=== PATIENT | female | born 1945 | race Caucasian/White ===

== ENCOUNTER 2017-06-13 14:56 | Observation (INO) | payer OTHER ==
[~2017-06-13] VITALS: Ht 167.6 cm; Wt 61.2 kg
[~2017-06-13 14:56] MED LIST: DIVA500EC PO; FAMO20 PO; HYDACE5 PO; NAPR500 PO; RISP2
[2017-06-13 15:37] LABS: BASOPHILS ABSOLUTE AUTO 0.05 K/mm3 (0.00-0.23); BASOPHILS PERCENT AUTO 1 % (0-2); EOSINOPHILS ABSOLUTE AUTO 0.04 K/mm3 (0.00-0.68); EOSINOPHILS PERCENT AUTO 1 % (0-6); Hematocrit 46.2 % (33.0-51.0); Hemoglobin 15.2 g/dL (11.5-16.0); IMMATURE GRAN ABSOLUTE AUTO 0.01 K/mm3 (0.00-0.10); IMMATURE GRAN PERCENT AUTO 0 % (0-1); LYMPHOCYTES ABSOLUTE AUTO 2.44 K/mm3 (0.84-5.20); LYMPHOCYTES PERCENT AUTO 34 % (21-46); MONOCYTES PERCENT AUTO 7 % (4-13); Mean Corpuscular HGB 32.1 pg (26.0-34.0); Mean Corpuscular HGB Conc 32.9 g/dL (31.5-36.5); Mean Corpuscular Volume 98 fL (80-100); Mean Platelet Volume 10.7 fL (9.1-12.4); NEUTROPHILS ABSOLUTE AUTO 4.17 K/mm3 (1.96-9.15); NEUTROPHILS PERCENT AUTO 58 % (41-73); Platelet Count 260 K/mm3 (150-400); RDW Coefficient Variation 12.2 % (11.7-14.2); RDW Standard Deviation 43.9 fL (35.1-46.3); Red Blood Cell Count 4.74 M/mm3 (3.80-5.20); White Blood Cell Count 7.21 K/mm3 (4.00-11.30)
[2017-06-13] MEDS ORDERED: DIVA500ER PO (15:56)
[2017-06-13] MEDS ORDERED: RISP2 PO ×2 (15:57)
[2017-06-13 15:59] LABS: Alanine Aminotransfer (ALT/SGP 54 U/L (12-78); Albumin, Blood 3.7 g/dL (3.4-5.0); Albumin/Globulin Ratio 1.1 (0.8-1.8); Alk Phos 107 U/L (50-136); Anion Gap 9 mmol/L (6-16); Aspartate Aminotrans (AST/SGOT 39 U/L (12-37); Bilirubin, Total 0.6 mg/dL (0.1-1.0); Blood Urea Nitrogen 9 mg/dL (8-24); Bun/Creatinine Ratio 18.4 (12.0-20.0); CO2, Blood 23 mmol/L (21-32); Chloride, Blood 107 mmol/L (98-108); Creatinine, Blood 0.49 mg/dL (0.40-1.00); Ethanol (Alcohol), Blood, Med <3 mg/dL; Globulin, Blood 3.5 g/dL (2.2-4.0); Glomerular Filtration Rate >60 (60-); Glucose, Blood 110 mg/dL (70-99); Potassium, Blood 3.9 mmol/L (3.5-5.5); Sodium, Blood 139 mmol/L (136-145); Thyroxine (T4) 10.3 ug/dL (4.8-13.9); Total Protein, Blood 7.2 g/dL (6.4-8.2)
[2017-06-13 16:07] LABS: Acetaminophen, Random < 2.0 ug/mL (10.0-30.0)
[2017-06-13 20:44] LABS: Valproic Acid 3.1 ug/mL (50.0-100.0)
[2017-06-14 01:02] LABS: Source, Urine Clean Catch
[2017-06-14 01:37] LABS: Bilirubin, Urine Neg (Neg); Blood, Urine 1+ (Neg); Glucose Qualitative, Urine Neg (Neg); Ketones, Urine 1+ (Neg); Leukocyte Esterase, Urine Neg (Neg); Nitrite, Urine Neg (Neg); Protein, Urine 1+ (Neg); Urobilinogen, Urine 3+ (Normal)
[2017-06-14 01:38] LABS: Color, Urine Yellow (P-Yellow); U Amphetamine Screen Not Detected; U Barbituate Screen Not Detected; U Benzodiazapine Screen Not Detected; U Buprenorphine Screen Not Detected; U Cannabinoids Screen Not Detected; U Cocaine Screen Not Detected; U Methadone Screen Not Detected; U Methamphetamine Screen Not Detected; U Opiates Screen Not Detected; U Oxycodone Screen Not Detected; U Phencyclidine Screen Not Detected; U Propoxyphene Screen Not Detected
[2017-06-14 01:39] LABS: Appearance, Urine Hazy (Clear)
[2017-06-14 02:51] LABS: Bacteria Few /hpf; Mucus Light (0-Heavy); Squamous Epithelial Cells Rare /hpf (Few); White Blood Cells, Urine 0-2 /hpf (0-5)
== END 2017-06-14 19:16 | disposition home or self-care (01) ==
LOC: ER 14:56 → EOR 14:57
PROVIDERS: Emergency Medicine
DX: F03.90 Unspecified dementia, unspecified severity, without behavioral disturbance, psychotic disturbance, mood disturbance, and anxiety (principal); F25.0 Schizoaffective disorder, bipolar type; F17.200 Nicotine dependence, unspecified, uncomplicated; Z88.2 Allergy status to sulfonamides; Z88.8 Allergy status to other drugs, medicaments and biological substances; Z79.899 Other long term (current) drug therapy
CPT/HCPCS: 36415; 80053; 80164; 81001; 81025; 83880; 84436; 84443; 85025; 93005; 93010; 99285; G0378; G0480

== ENCOUNTER → 2017-10-07 | Outpatient (CLI) | payer OTHER ==
[~2017-10-07] MED LIST changes: +DIVA500ER PO; +RISP2 PO
== END ==
LOC: PLD 08:23 → LAB SHORT 08:23
DX: D48.5 Neoplasm of uncertain behavior of skin (principal)
CPT/HCPCS: 88305

== ENCOUNTER → 2019-06-01 | Outpatient (CLI) | payer OTHER ==
[2019-06-01 19:20] LABS: Source, Urine Clean Catch
[2019-06-01 20:04] LABS: Appearance, Urine Clear (Clear); Bilirubin, Urine Neg (Neg); Blood, Urine 1+ (Neg); Color, Urine Yellow (P-Yellow); Glucose Qualitative, Urine Neg (Neg); Ketones, Urine 1+ (Neg); Leukocyte Esterase, Urine Neg (Neg); Nitrite, Urine Neg (Neg); Protein, Urine Neg (Neg); Urobilinogen, Urine NORM (Normal)
[2019-06-01 20:10] LABS: Bacteria Mod /hpf; Red Blood Cells, Urine 0-2 /hpf (0-2); Squamous Epithelial Cells Few /hpf (Few); White Blood Cells, Urine 0-2 /hpf (0-5)
== END | disposition home or self-care (01) ==
LOC: LAB 19:19 → LAB SHORT 19:19
PROVIDERS: Physician Assistant
DX: N39.0 Urinary tract infection, site not specified (principal)
CPT/HCPCS: 81001; 87086

== ENCOUNTER → 2019-10-21 | Outpatient (CLI) | payer OTHER | END | disposition home or self-care (01) | LOC: LAB SHORT 08:07 → LAB 08:07 | DX: L57.8 Other skin changes due to chronic exposure to nonionizing radiation (principal) | CPT/HCPCS: 88305 ==

== ENCOUNTER → 2019-11-03 | Outpatient (CLI) | payer OTHER ==
[2019-11-03 13:13] LABS: Valproic Acid 71.9 ug/mL (50.0-100.0)
== END | disposition home or self-care (01) ==
LOC: LAB SHORT 09:44 → LAB 09:44
PROVIDERS: Psychiatry & Neurology Psychiatry
DX: Z51.81 Encounter for therapeutic drug level monitoring (principal); Z79.899 Other long term (current) drug therapy
CPT/HCPCS: 80164

== ENCOUNTER → 2020-01-12 | Outpatient (CLI) | payer OTHER ==
[2020-01-12 19:49] LABS: BASOPHILS ABSOLUTE AUTO 0.04 K/mm3 (0.00-0.23); BASOPHILS PERCENT AUTO 1 % (0-2); EOSINOPHILS ABSOLUTE AUTO 0.08 K/mm3 (0.00-0.68); EOSINOPHILS PERCENT AUTO 1 % (0-6); Hematocrit 45.7 % (33.0-51.0); Hemoglobin 14.5 g/dL (11.5-16.0); IMMATURE GRAN ABSOLUTE AUTO 0.05 K/mm3 (0.00-0.10); IMMATURE GRAN PERCENT AUTO 1 % (0-1); LYMPHOCYTES ABSOLUTE AUTO 3.29 K/mm3 (0.84-5.20); LYMPHOCYTES PERCENT AUTO 48 % (21-46); MONOCYTES PERCENT AUTO 9 % (4-13); Mean Corpuscular HGB 32.8 pg (26.0-34.0); Mean Corpuscular HGB Conc 31.7 g/dL (31.5-36.5); Mean Corpuscular Volume 103 fL (80-100); Mean Platelet Volume 11.3 fL (9.1-12.4); NEUTROPHILS ABSOLUTE AUTO 2.83 K/mm3 (1.96-9.15); NEUTROPHILS PERCENT AUTO 41 % (41-73); Platelet Count 220 K/mm3 (150-400); RDW Coefficient Variation 12.2 % (11.7-14.2); RDW Standard Deviation 47.2 fL (35.1-46.3); Red Blood Cell Count 4.42 M/mm3 (3.80-5.20); White Blood Cell Count 6.89 K/mm3 (4.00-11.30)
[2020-01-12 20:00] LABS: Alanine Aminotransfer (ALT/SGP 39 U/L (12-78); Albumin/Globulin Ratio 0.8 (0.8-1.8); Alk Phos 110 U/L (50-136); Anion Gap 6 mmol/L (6-16); Aspartate Aminotrans (AST/SGOT 29 U/L (12-37); Bilirubin, Total 0.3 mg/dL (0.1-1.0); Blood Urea Nitrogen 8 mg/dL (8-24); Bun/Creatinine Ratio 11.1 (12.0-20.0); CO2, Blood 27 mmol/L (21-32); Calcium, Blood 8.8 mg/dL (8.5-10.1); Chloride, Blood 106 mmol/L (98-108); Creatinine, Blood 0.72 mg/dL (0.40-1.00); Glomerular Filtration Rate >60 (60-); Glucose, Blood 101 mg/dL (70-99); Potassium, Blood 4.3 mmol/L (3.5-5.5); Sodium, Blood 139 mmol/L (136-145)
== END ==
LOC: LAB SHORT 18:56 → PLD 18:56
PROVIDERS: Physician Assistant
DX: F31.9 Bipolar disorder, unspecified (principal)
CPT/HCPCS: 80053; 85025

== ENCOUNTER → 2020-03-15 | Outpatient (CLI) | payer OTHER | LOC: LAB SHORT 09:10 → LAB 09:10 | PROVIDERS: Psychiatry & Neurology Psychiatry | DX: Z51.81 Encounter for therapeutic drug level monitoring (principal); Z79.899 Other long term (current) drug therapy | CPT/HCPCS: 80164 ==

== ENCOUNTER 2020-05-18 09:04 | Inpatient (IN) | payer OTHER ==
[~2020-05-18] VITALS: Ht 170.2 cm; Wt 85.6 kg
[2020-05-18] MEDS ORDERED: TUMS500 MG PO (09:27)
[2020-05-18] MEDS ORDERED: LORA10ER PO (09:28)
[2020-05-18] MEDS ORDERED: CENTRUM SILVER1 EAC2 PO (09:28)
[2020-05-18] MEDS ORDERED: QUETIAPINE FUMA50 M2 PO (09:28)
[2020-05-18] MEDS ORDERED: ACET325 PO (09:29)
[2020-05-18] MEDS ORDERED: BISA10S (09:30)
[2020-05-18] MEDS ORDERED: ROBITUSSIN100 MG/5 M PO (09:31)
[2020-05-18] MEDS ORDERED: RISP3 PO (09:33)
[2020-05-18 10:38] LABS: Valproic Acid 74.4 ug/mL (50.0-100.0)
[2020-05-18 10:47] LABS: Alanine Aminotransfer (ALT/SGP 26 U/L (12-78); Albumin/Globulin Ratio 0.9 (0.8-1.8); Alk Phos 100 U/L (50-136); Anion Gap 8 mmol/L (6-16); Aspartate Aminotrans (AST/SGOT 62 U/L (12-37); Bilirubin, Total 0.9 mg/dL (0.1-1.0); Blood Urea Nitrogen 3 mg/dL (8-24); Bun/Creatinine Ratio 9.1 (12.0-20.0); CO2, Blood 25 mmol/L (21-32); Calcium, Blood 7.9 mg/dL (8.5-10.1); Chloride, Blood 82 mmol/L (98-108); Creatinine, Blood 0.33 mg/dL (0.40-1.00); Globulin, Blood 3.5 g/dL (2.2-4.0); Glomerular Filtration Rate >60 (60-); Glucose, Blood 121 mg/dL (70-99); Potassium, Blood 4.4 mmol/L (3.5-5.5); Sodium, Blood 115 mmol/L (136-145); Total Protein, Blood 6.5 g/dL (6.4-8.2)
[2020-05-18 11:20] LABS: BASOPHILS ABSOLUTE AUTO 0.01 K/mm3 (0.00-0.23); BASOPHILS PERCENT AUTO 0 % (0-2); EOSINOPHILS PERCENT AUTO 0 % (0-6); Hematocrit 39.4 % (33.0-51.0); Hemoglobin 13.8 g/dL (11.5-16.0); IMMATURE GRAN ABSOLUTE AUTO 0.09 K/mm3 (0.00-0.10); IMMATURE GRAN PERCENT AUTO 1 % (0-1); LYMPHOCYTES ABSOLUTE AUTO 1.15 K/mm3 (0.84-5.20); LYMPHOCYTES PERCENT AUTO 9 % (21-46); MONOCYTES ABSOLUTE AUTO 1.18 K/mm3 (0.16-1.47); MONOCYTES PERCENT AUTO 9 % (4-13); Mean Corpuscular HGB 32.9 pg (26.0-34.0); Mean Corpuscular Volume 94 fL (80-100); Mean Platelet Volume 10.2 fL (9.1-12.4); NEUTROPHILS ABSOLUTE AUTO 11.13 K/mm3 (1.96-9.15); NEUTROPHILS PERCENT AUTO 82 % (41-73); Platelet Count 210 K/mm3 (150-400); RDW Coefficient Variation 10.9 % (11.7-14.2); RDW Standard Deviation 37.3 fL (35.1-46.3); White Blood Cell Count 13.56 K/mm3 (4.00-11.30)
[2020-05-18 11:34] LABS: Source, Urine Catheter
[2020-05-18 11:40] LABS: Appearance, Urine Clear (Clear); Bilirubin, Urine Neg (Neg); Blood, Urine 2+ (Neg); Color, Urine Yellow (P-Yellow); Glucose Qualitative, Urine Neg (Neg); Ketones, Urine 2+ (Neg); Leukocyte Esterase, Urine Neg (Neg); Nitrite, Urine Neg (Neg); Protein, Urine Neg (Neg); Urobilinogen, Urine NORM (Normal)
[2020-05-18 11:54] LABS: Bacteria Few /hpf; Squamous Epithelial Cells Few /hpf (Few); White Blood Cells, Urine 0-2 /hpf (0-5)
[2020-05-18 15:34] LABS: Osmolality, Urine 354 mos/kg (15-1400)
[2020-05-18 16:00] LABS: Sodium, Urine, Random 85 mmol/L (20-110)
[2020-05-18 16:51] LABS: Anion Gap 5 mmol/L (6-16); Blood Urea Nitrogen 4 mg/dL (8-24); CO2, Blood 28 mmol/L (21-32); Calcium, Blood 8.2 mg/dL (8.5-10.1); Chloride, Blood 81 mmol/L (98-108); Glomerular Filtration Rate >60 (60-); Glucose, Blood 140 mg/dL (70-99); Potassium, Blood 4.5 mmol/L (3.5-5.5); Sodium, Blood 114 mmol/L (136-145)
[2020-05-18 19:02] LABS: Uric Acid, Blood 2.4 mg/dL (2.6-6.0)
[2020-05-18 19:04] LABS: Phosphorus, Blood 2.7 mg/dL (2.5-4.9); Thyroid Stimulating Hormone 0.99 uIU/mL (0.360-4.800)
--- NOTE | 2020-05-18 19:07 | NUR ---
Admission/Shift Summary: Patient arrive to unit/ICU-15 at 1615hr. Arrived via stretcher, accompanied by ED nurse. Patient sleeping, but roused to verbal stimuli, very drowsy and difficulty to keep awake. Patient given prn Dilaudid in ED before arrival to unit. Oriented to self and time, but confused to place. VSS, spO2 90-94% on 6L/NC. Peripheral IV's x2 patent and intact. 3% Saline started peripherally and call placed to Dr. Gilliam. Received order to place PICC line and to also start NS at 75ml/hr. PICC placed to [facility] without difficulty by Pineda Pagan RN from Medical floor, 3% Saline then switched to PICC line. Repeat sodium levels showed increased from 114 to 117. Received order from Dr. Gilliam to stop 3% Saline when sodium reaches 120, and maintain NS, nurse notify placed. Patient remains stable. Bedside report given to NOC shift RN.
--- NOTE | 2020-05-18 20:16 | NUR ---
Care Assumed 1900 PT RESTING IN BED. A/O X 4, ABLE TO STATE DATE, YEAR, AND EVENT THAT LEAD TO HER BEING IN THE HOSPITAL. DROWSY AT TIMES BUT EASILY AWAKENS. ON 6 L VIA NC, SPO2 > 90%. NSR, HR 60-70'S, AND BP STABLE. PT DENIES PAIN AT THIS TIME. NS AT 75 ML/HR AND 3% SODIUM CHLORIDE AT 30 MLS/HR, INFUSING VIA PICC. WILL CONTINUE TO MONITOR.
--- NOTE | 2020-05-18 20:43 | NUR ---
UPDATE SPOKE TO DR. FIGUEROA AND RECIEVED ORDERS TO INCREASE NORMAL SALINE TO 100 ML/HR, IF SODIUM IS HIGHER THAN 120 AND TO STOP 3% SODIUM CHOLRIDE. PT CURRENTLY HAS 50 MLS OF DARK MOISE COLORED URINE IN RANDLE BAG.
[2020-05-18 23:06] LABS: Influenza A, PCR Negative (NEGATIVE); Influenza B, PCR Negative (NEGATIVE); Resp Syncytial Virus, PCR Negative (NEGATIVE); SARS-Cov-2 (COVID-19) PCR, MMC Negative (NEGATIVE)
--- NOTE | 2020-05-19 02:01 | NUR ---
UPDATE PT APPEARS ANXIOUS DURING ASSESSMENT. PT ASKED "ARE THEY GOING TO KILL ME TOMORROW" WHEN DISCUSSING HER POSSIBLE SURGERY FOR THE FRACTURE. ATTEMPTED TO REASSURE THE PATIENT AND ANSWERED QUESTIONS. EXPLAINED THAT THE PROVIDER WILL COME IN TOMORROW AND WE CAN DISCUSS THE PLAN WITH THE PROVIDER. PT APPEARS AT EASE AND AGREED TO PLAN. PT STATES HAVING PAIN 10/10 ON HER HIP. ATTEMPTED TO TREAT WITH MORPHINE PER EMAR BUT PT REFUSED AND STATES "MORPHINE IS POISON." ASKED PT IF SHE WOULD LIKE SUPP TYLENOL BUT PT REFUSED THAT WELL. ASKED PT IF SHE WOULD LIKE ANOTHER PAIN MEDICATION BUT STATES NO. ASKED TO CHANGE POSITIONS AND THAT HELPED WITH THE PAIN. PT PLACED ON OXYMIZER 11 L DUE TO BEING A MOUTH BREATHER, SPO2 DECREASING TO 85%. AFTER PLACING PT ON OXYMIZER SPO2 88-96%.
[2020-05-19 04:37] LABS: BASOPHILS ABSOLUTE AUTO 0.01 K/mm3 (0.00-0.23); BASOPHILS PERCENT AUTO 0 % (0-2); EOSINOPHILS PERCENT AUTO 0 % (0-6); Hemoglobin 12.9 g/dL (11.5-16.0); IMMATURE GRAN ABSOLUTE AUTO 0.05 K/mm3 (0.00-0.10); IMMATURE GRAN PERCENT AUTO 0 % (0-1); LYMPHOCYTES PERCENT AUTO 5 % (21-46); MONOCYTES ABSOLUTE AUTO 1.14 K/mm3 (0.16-1.47); MONOCYTES PERCENT AUTO 9 % (4-13); Mean Corpuscular HGB Conc 34.9 g/dL (31.5-36.5); Mean Corpuscular Volume 95 fL (80-100); Mean Platelet Volume 10.1 fL (9.1-12.4); NEUTROPHILS ABSOLUTE AUTO 10.86 K/mm3 (1.96-9.15); NEUTROPHILS PERCENT AUTO 86 % (41-73); Platelet Count 189 K/mm3 (150-400); RDW Coefficient Variation 11.1 % (11.7-14.2); RDW Standard Deviation 38.2 fL (35.1-46.3); Red Blood Cell Count 3.91 M/mm3 (3.80-5.20); White Blood Cell Count 12.66 K/mm3 (4.00-11.30)
[2020-05-19 04:55] LABS: Alanine Aminotransfer (ALT/SGP 28 U/L (12-78); Albumin, Blood 2.6 g/dL (3.4-5.0); Albumin/Globulin Ratio 0.8 (0.8-1.8); Alk Phos 88 U/L (50-136); Anion Gap 5 mmol/L (6-16); Aspartate Aminotrans (AST/SGOT 57 U/L (12-37); Bilirubin, Total 0.6 mg/dL (0.1-1.0); Blood Urea Nitrogen 5 mg/dL (8-24); Bun/Creatinine Ratio 12.8 (12.0-20.0); CO2, Blood 27 mmol/L (21-32); Calcium, Blood 7.8 mg/dL (8.5-10.1); Chloride, Blood 90 mmol/L (98-108); Creatinine, Blood 0.39 mg/dL (0.40-1.00); Globulin, Blood 3.3 g/dL (2.2-4.0); Glomerular Filtration Rate >60 (60-); Glucose, Blood 113 mg/dL (70-99); Potassium, Blood 4.2 mmol/L (3.5-5.5); Sodium, Blood 122 mmol/L (136-145); Total Protein, Blood 5.9 g/dL (6.4-8.2)
--- NOTE | 2020-05-19 07:27 | NUR ---
SHIFT SUMMARY PT REMAINS ON OXYMIZER AT 11 L, CONTINUES TO BREATH VIA MOUTH, SPO2 > 90%. NSR. HR 80'S. BP STABLE. 3% NACL STOPPED AT 0500 AND NS RATE INCREASED TO 100 ML/HR. PT HAD 600 MLS OF DARK MOISE CLOUDY URINE OUTPUT. RIGHT HIP PAIN TREATED WITH TYLENOL PO. PT CONTINUES TO REFUSE TO TAKE MORPHINE DUE TO IT BEING "POISONOUS." PT IS A/O X 4 BUT CONTINUES TO APPEAR ANXIOUS. WILL REPORT TO ONCOMING SHIFT.
--- NOTE | 2020-05-19 09:39 | NUR ---
AM NOTE... ASSUMED CARE OF PT APROX 0700. PT IS A&Ox4 AND WAS ADMITTED FOR A RIGHT HIP FRACTURE. PT IS TO GO TO THE OR TODAY AT APROX 12PM. PT'S VS STABLE AT THIS TIME SHE IS ON 10L OXYMIZER WITH O2 SATS >95%, THIS WAS TITRATED DOWN TO 8L OXYMIZER. PT'S BP AND HR STABLE. NO EDEMA NOTED ON ASSESSMENT. PT'S L/S VERY COARSE T/O WITH LOOSE NONPRODUCTIVE COUGH. PER PT SHE IS A SMOKER. BT PRESENT AND HYPOACTIVE, ABD IS SOFT AND NONTENDER TO PALP. PT'S RIGHT LEG IS APROX 2 INCHES SHORTER THAN HER LEFT. PT HAS BEEN MEDICATED FOR 8/10 PAIN PER EMAR. PT HAS BEEN NPO SINCE MIDNIGHT. WILL CONTINUE TO MONITOR.
--- NOTE | 2020-05-19 12:02 | NUR ---
PATIENT WAS BROUGHT TO D/S FOR HER PROCEDURE. History, Chart, Medications and Allergies reviewed before start of procedure.Lungs clear T/O to Auscultation.
--- NOTE | 2020-05-19 12:07 | NUR ---
UPDATE PROVIDED TO [facility] RN.
--- NOTE | 2020-05-19 13:30 | NUR ---
ADMIT:05/18/20 DISCHARGE: DX: Hyponatremia,fracture of femoral neck CC: GREG CALL: RESIDENCE: [facility] CAREGIVER: Brother Adan Milner is guardian DX: Bipolar I disorder, paranoid schizophrenia, degenerative joint disease, see list DME: compression stockings, knee brace CCM: none HOME HEALTH: none SUMMARY: Admit: 05/18/20 05/19/20- Per chart review with Dr. Gilliam, no est ETA for d/c at this time. Was notified by Katrin with [facility] that doctor put in referral for SNF upon d/c instead of returning to [facility]. -kjw Per chart review, pt scheduled to have surgery today of broken hip. Pt has had poor mentation due to anxiety about surgery and paranoid schizophrenia. Pt has refused pain medications prior to procedure. 1: Acute metabolic encephalopathy A/P: Likely secondary to hyponatremia in the setting of Dilaudid use in the ER With obtundation, marked marked confusion We will begin her on 3% hypertonic saline at 30 mL an hour, will recheck routine sodium every 2 hours with a goal to increase sodium by 4 to 6 mEq over the next few hours. Given her symptoms, we should for correction of no greater than 8 meQ over the first 24 hours, can discontinue hypertonic saline once patient symptoms of obtundation, marked confusion resolves or if serum sodium concentrations are normalizing (> 120 mEq/L), or if the maximum correction level over time is reached. 2: Femoral neck fracture A/P: Imaging noted right femoral neck fracture Orthopedic consulted, plan for surgical fixation tomorrow once sodium corrected Pain control with IV morphine 2 mg every 4 hours as needed 3: Hyponatremia A/P: Unknown etiology Obtained serum osmolality noted to be lower, urine sodium and urine osmolality much higher Given her hypovolemic appearance, differentials would include volume depletion, medication side effect, adrenal insufficiency, low solute intake ("tea and toast" diet), hypothyroidism, hypopituitarism, adrenal insufficiency, SIADH We will institute fluid restriction Hold off on antipsychotics risperidone, Seroquel Continue 3% hypertonic saline Begin normal saline IV fluids at 75 mL's an hour Monitor sodium every 2 hours until greater than 120, then at that point discontinue hypertonic saline. Check TSH, uric acid 4: Bipolar 1 disorder A/P: Hold risperidone for now 5: Paranoid schizophrenia A/P: Hold risperidone 6: Tobacco abuse A/P: History of Nicotine patches as needed
--- NOTE | 2020-05-19 15:41 | NUR ---
PT O2 AT 10 L PER NRB WHEN RETURNED TO ICU
--- NOTE | 2020-05-19 15:44 | NUR ---
PT RETURN FROM OR... PT RETURNED FROM THE OR AT 1615, PT WAS ON 10L NON-REBREATHER MASK WITH O2 SATS AT 90-91%. L/S VERY COARSE RHONCHI T/O RR 20'S AND SHALLOW. PT'S BP STABLE AT 119/65, HR 86 NSR. DRESSING TO THE RIGHT HIP IS C/D/I. PT DENIES PAIN AT THIS TIME. PT IS A&Ox3 KNOWING WHERE SHE IS AT, WHY SHE IS HERE BUT ASKING FOR HER "CLINT". WILL CONTINUE TO MONITOR.
[2020-05-19 16:36] LABS: Anion Gap 5 mmol/L (6-16); Blood Urea Nitrogen 6 mg/dL (8-24); Bun/Creatinine Ratio 14.2 (12.0-20.0); CO2, Blood 28 mmol/L (21-32); Calcium, Blood 7.9 mg/dL (8.5-10.1); Chloride, Blood 92 mmol/L (98-108); Creatinine, Blood 0.42 mg/dL (0.40-1.00); Glomerular Filtration Rate >60 (60-); Glucose, Blood 133 mg/dL (70-99); Sodium, Blood 125 mmol/L (136-145)
--- NOTE | 2020-05-19 18:16 | NUR ---
SHIFT SUMMARY... SINCE PREVIOUS NOTES...PT HAS BEEN ON 10L HI FLOW NC SINCE SHE HAS RETURNED FROM THE OR. PT CURRENTLY DENIES ANY PAIN TO HER RIGHT LEG/HIP. L/S CONTINUE TO BE COARSE RHONCHI HEARD T/O. OTHER VS STABLE. PT WAS TAKEN TO IMAGING FOR CHEST CT W/CONTRAST AND THEN TRANSPORTED BACK, SHE TOLERATED THIS WELL. PT WAS ABLE TO EAT A FULL LIQUID DINNER WITH NO SWALLOWING ISSUES NOTED BY THIS RN. RANDLE PATENT AND DRAINING DARK YELLOW STRONG SMELLING URINE TO GRAVITY. CALL LIGHT IN REACH WILL CONTINUE TO MONITOR UNTIL REPORT IS GIVEN TO ONCOMING RN.
--- NOTE | 2020-05-19 21:09 | NUR ---
Care assumed 1900 Pt requires sternal rub to be awaken with minimal eye opening. Unable to answer questions or follow commands. SBP 93-83 and DBP 50-60'S, HR 60-70'S, RR 12-20. Pts pupils were pinpoint and weak gag present at the start of shift. [employer] called and pt given 0.1 mg of Narcan with moderate effect. Pts pupils no longer pinpoint (2), able to open eyes and answer simple questions with verbal stimuli. Pt states being at [facility], reoriented to location and event. Pt nods yes to remembering that she is at [facility] and had surgery today. SBP 90-low 100. Pt remains in NSR and denies pain at this time. PICC infusing NS at rate of 75 ml/hr, PICC dressing changed. Pts right hip dressing C/D/I, cool therapy applied. Mart in place, draining to gravity with 400 mls of cloudy yellow urine in bag. Will continue to monitor.
--- NOTE | 2020-05-20 | NUR ---
UPDATE Pt easily awakens, a/o to location, event, month, but states the year is 2000. Pt corrected and reoriented. Pt removed CPAP mask and states she does not want anything covering her face. Pt tolerates high flow NC at 14 L when placed close to the mouth. Pt is a "mouth breather" and SPO2 decreases to 80-75% when high flow NC is placed in nares. She has congested productive cough, pt able to use suction wand independently (scant casiano colored secretion's). Asked pt how long she has had cough for, pt states, "My doctor told me it is an allergy." Asked pt if she smokes, pt states she smokes 5-7 cigarettes a day since the age of 33. Pt denies being in pain at this time. Will continue to monitor.
[2020-05-20 01:57] LABS: Anion Gap 5 mmol/L (6-16); Blood Urea Nitrogen 7 mg/dL (8-24); Bun/Creatinine Ratio 17.9 (12.0-20.0); CO2, Blood 28 mmol/L (21-32); Calcium, Blood 7.8 mg/dL (8.5-10.1); Chloride, Blood 96 mmol/L (98-108); Creatinine, Blood 0.39 mg/dL (0.40-1.00); Glomerular Filtration Rate >60 (60-); Glucose, Blood 127 mg/dL (70-99); Potassium, Blood 3.8 mmol/L (3.5-5.5); Sodium, Blood 129 mmol/L (136-145)
[2020-05-20 04:51] LABS: BASOPHILS ABSOLUTE AUTO 0.01 K/mm3 (0.00-0.23); BASOPHILS PERCENT AUTO 0 % (0-2); EOSINOPHILS PERCENT AUTO 0 % (0-6); Hematocrit 31.9 % (33.0-51.0); Hemoglobin 10.9 g/dL (11.5-16.0); IMMATURE GRAN ABSOLUTE AUTO 0.07 K/mm3 (0.00-0.10); IMMATURE GRAN PERCENT AUTO 1 % (0-1); LYMPHOCYTES ABSOLUTE AUTO 0.95 K/mm3 (0.84-5.20); LYMPHOCYTES PERCENT AUTO 8 % (21-46); MONOCYTES ABSOLUTE AUTO 1.25 K/mm3 (0.16-1.47); MONOCYTES PERCENT AUTO 10 % (4-13); Mean Corpuscular HGB 33.3 pg (26.0-34.0); Mean Corpuscular HGB Conc 34.2 g/dL (31.5-36.5); Mean Corpuscular Volume 98 fL (80-100); Mean Platelet Volume 10.3 fL (9.1-12.4); NEUTROPHILS ABSOLUTE AUTO 10.16 K/mm3 (1.96-9.15); NEUTROPHILS PERCENT AUTO 82 % (41-73); Platelet Count 159 K/mm3 (150-400); RDW Coefficient Variation 11.6 % (11.7-14.2); RDW Standard Deviation 41.6 fL (35.1-46.3); Red Blood Cell Count 3.27 M/mm3 (3.80-5.20); White Blood Cell Count 12.44 K/mm3 (4.00-11.30)
[2020-05-20 05:16] LABS: Anion Gap 3 mmol/L (6-16); Blood Urea Nitrogen 6 mg/dL (8-24); Bun/Creatinine Ratio 15.5 (12.0-20.0); CO2, Blood 28 mmol/L (21-32); Calcium, Blood 7.9 mg/dL (8.5-10.1); Chloride, Blood 97 mmol/L (98-108); Creatinine, Blood 0.39 mg/dL (0.40-1.00); Glomerular Filtration Rate >60 (60-); Glucose, Blood 101 mg/dL (70-99); Magnesium, Blood 1.9 mg/dL (1.6-2.4); Phosphorus, Blood 1.4 mg/dL (2.5-4.9); Potassium, Blood 4.2 mmol/L (3.5-5.5); Sodium, Blood 128 mmol/L (136-145)
--- NOTE | 2020-05-20 05:17 | NUR ---
Shift Summary Pt A/O X 4, sitting in bed watching TV with call light and oral suction wand in hand. Pt aware of event, location, date, and not drowsy. In NSR, Hr 70's, BP stable. Pts high flow NC has been removed and pts SPO2 > 92% while on RA. Teaching done for how to use incentive spirometer, pt able to use it with minimal success with bedside coaching, will continue to attempt as tolerated. Pt denies pain, right hip dressing C/D/I. Pt states she does not want cold therapy on her hip and removed at this time. Cold therapy on/off per protocol t/o the shift. Will report to oncoming shift.
--- NOTE | 2020-05-20 05:46 | NUR ---
Phosphorus 1.[address] Hernnadez and reiceved orders for SodiumPhos 20 MM IV X 1.
--- NOTE | 2020-05-20 06:44 | NUR ---
UPDATE Pt easily becomes fixated on tasks. Pt continue to attempt to use oral suction while not coughing. Thick dark blood streaked sputum noted in suction tubing. Educated pt on NOT using suction if there is no cough. Suction turned off due to pt continuing to attempt to use suction. Pt uses call light frequently t/o shift, asking to have warm blanket every 2 hours, hob raised/lowered. When asked if she is anxious, pt states she is not but wants to go home soon. Discussed the next steps in her treatment plan. Pt appears at ease when nurse is in the room and quickly becomes anxious/uses call light frequently to have nurse stay in the room with her. Reassured pt on care being done and next steps in the care such as physical therapy and moving to sugrical floor. Pt appears at ease while disccusing these topics. will report to oncoming shift.
--- NOTE | 2020-05-20 07:14 | NUR ---
Received report from Goyo SANDERSON. patient awake and sitting up in bed. She is able to commnicate all her needs and pain level. She is oriented year, place, day, and reason for beingh in hospital. She has been refusing cold therapy and states she does not like how it feels. She is on RA and sats >90%. She has 20ga IV RH dressing intact and site WNL's and is flushed and SL'd. She also has PICC line to OPAL dressing intact and site WNL's and is infusing NS at 75 ml/hr and Sodium Phos. She has blue leg immobilizer to R thigh patient denies any current need form pain intervention. She is currently using insentive spirometer.
--- NOTE | 2020-05-20 09:48 | NUR ---
Patient remains awake sitting up in bed. She calls using call light for intermitent questions. She remains on RA and sats >90%. She tolerated am meds and gave Ultram for 5/10 pain. She tolerated breakfast except grits as she does not like the. She has productive cough that she spits in kleenex. Pulses barely palpable right pedal. She is confused at times but follows directiions well and does not try to get up. VSS, See EMR. Immobilizer intact right upper leg.
--- NOTE | 2020-05-20 10:30 | NUR ---
Dr Reid by to see patient and changed R hip dressing and stated that she may go to Surgical floor if OK with EFM.
--- NOTE | 2020-05-20 11:58 | NUR ---
Patient up in chair after PT came and worked with them. Taklked with Dr Gilliam and OK to change to regular diet and he will transfer to Surgical floor after assessing. VSS, See EMR. NS remains at 75 ml/hr. No other significant changes with patient and she has been appropriate so far this shift and continues to call appropriately.
--- NOTE | 2020-05-20 13:22 | NUR ---
Patient tolerated 100% regular diet without assist. She wanted to go back to bed and used walker with one assist and hooked back up to monitor and awaiting EFM Dr to assess. VSS, See EMR. NS at 75ml/hr continues.
[2020-05-20 13:58] LABS: Anion Gap 6 mmol/L (6-16); Blood Urea Nitrogen 6 mg/dL (8-24); Bun/Creatinine Ratio 16.3 (12.0-20.0); CO2, Blood 28 mmol/L (21-32); Calcium, Blood 7.7 mg/dL (8.5-10.1); Chloride, Blood 97 mmol/L (98-108); Creatinine, Blood 0.37 mg/dL (0.40-1.00); Glomerular Filtration Rate >60 (60-); Glucose, Blood 122 mg/dL (70-99); Potassium, Blood 3.8 mmol/L (3.5-5.5); Sodium, Blood 131 mmol/L (136-145)
--- NOTE | 2020-05-20 16:04 | NUR ---
Mandy Rn given report, DOLORES Tang by and saw patient just prior to transfer. She was transfered via ICU bed and self transfered to bed in Surg 213 with [id number] and one assist. CPAP, chart and belongings transferred with patient. DOLORES tang Dc fluids.
--- NOTE | 2020-05-20 16:13 | NUR ---
Patient arrived to room 213. Patient transferred to bed using FWW and 1 assist. S/L. IS at bedside. Patient denies pain at this time. VSS. Warm blanket given to patient. Dressing CDI. Bed alarm on. Call light within patient reach.
[2020-05-21 01:55] LABS: Anion Gap 5 mmol/L (6-16); Blood Urea Nitrogen 4 mg/dL (8-24); CO2, Blood 30 mmol/L (21-32); Calcium, Blood 7.6 mg/dL (8.5-10.1); Chloride, Blood 90 mmol/L (98-108); Creatinine, Blood 0.31 mg/dL (0.40-1.00); Glomerular Filtration Rate >60 (60-); Glucose, Blood 124 mg/dL (70-99); Potassium, Blood 3.4 mmol/L (3.5-5.5); Sodium, Blood 125 mmol/L (136-145)
--- NOTE | 2020-05-21 04:36 | NUR ---
SHIFT SUMMARY POD2 R HERMES HIP W/ POSTERIOR PRECAUTIONS, A/O X4, VSS, TOLERATING POO FLUIDS, NO FOOD IN ROOM OR REQUESTED T/O SHIFT, RANDLE IN PLACE AND DRAINING WELL, LOOSE BM AT START OF SHIFT. PT HAS ROUGH COUGH THAT SEEMS TO COME AND GO, LUNGS SOUNDS CLEAR/DIMINISHED AT START OF SHIFT BUT DEVELOPED INTO MILD RHONCI, PT STATES THAT SHE DOESN'T FEEL LIKE SHE IS COUGHING THAT MUCH, SHE ALSO STATES THAT TODAY'S COUGH IS SIGNIFICANTLLY BETTER THAN YESTERDAYS, DENIES DIZZYNESS, DENIES ANY LIGHTHEADEDNESS, SKIN REMAINS PINK/WARM/DRY DESPITE COUGHING, WILL SUGGEST DAY RN REQUEST DECONGESTANT FOR PT IF COUGH PERSISTS. PT USES CALL LIGHT FREQUENTLY, DENIES PAIN. CALL LIGHT IN REACH. WILL CONTINUE TO MONITOR AND REPORT TO ONCOMING DAY RN.
--- NOTE | 2020-05-21 09:44 | NUR ---
ASSUMED CARE OF PT FROM AUGUSTINE Guardado RN.
--- NOTE | 2020-05-21 11:22 | NUR ---
05/21/20- per chart review with Dr. Gilliam, pt will not be d/c today. She still needs to work with therapy. When she is ready to d/c she will need to go to a SNF before going back to [facility]. No est ETA at this time. -stacey
[2020-05-21 14:31] LABS: Anion Gap 8 mmol/L (6-16); Blood Urea Nitrogen 5 mg/dL (8-24); Bun/Creatinine Ratio 12.9 (12.0-20.0); CO2, Blood 25 mmol/L (21-32); Calcium, Blood 8.3 mg/dL (8.5-10.1); Chloride, Blood 94 mmol/L (98-108); Creatinine, Blood 0.39 mg/dL (0.40-1.00); Glomerular Filtration Rate >60 (60-); Glucose, Blood 117 mg/dL (70-99); Potassium, Blood 4.4 mmol/L (3.5-5.5); Sodium, Blood 127 mmol/L (136-145)
--- NOTE | 2020-05-21 17:06 | NUR ---
SUMMARY PT SAT UP IN CHAIR THIS SHIFT. NOW BACK TO BED. HAS NOT C/O OF PAIN. NA CONTINUES TO BE LOW; ORDERS OBTAINED TO RESTART NORMAL SALINE. CONTINUES TO HAVE BARKING COUGH. PT NEEDS FREQUENT VERBAL CUES FOR MOVEMENT BUT IS FAIRLY STEADY ON FEET W/FWW. CALL LIGHT IN REACH.
[2020-05-22 05:45] LABS: Anion Gap 8 mmol/L (6-16); Blood Urea Nitrogen 6 mg/dL (8-24); Bun/Creatinine Ratio 16.9 (12.0-20.0); CO2, Blood 26 mmol/L (21-32); Calcium, Blood 8.4 mg/dL (8.5-10.1); Chloride, Blood 94 mmol/L (98-108); Creatinine, Blood 0.36 mg/dL (0.40-1.00); Glomerular Filtration Rate >60 (60-); Glucose, Blood 130 mg/dL (70-99); Potassium, Blood 3.7 mmol/L (3.5-5.5); Sodium, Blood 128 mmol/L (136-145)
--- NOTE | 2020-05-22 06:25 | NUR ---
SUMMARY PT AWAKE WATCHING TV. JER DCD. PT HAS DRY BARKY COUGH. ENC PULM TOILET.
--- NOTE | 2020-05-22 12:15 | NUR ---
05/22/20- SPOKE WITH STAFF AT [facility]. UPDATED THEM ON PT STATUS, THAT SHE IS CURRENTLY LABELED A 2-PERSON ASSIST WITH RECOMMENDATION FOR SNF. SHARED WITH THEM THAT [facility] SEED SPECIALIST REPORTS THAT SHE CAN RETURN TO [facility] ONCE MEDICALLY STABLE AND THAT PT HAS 24/7 SUPPORT. SPOKE WITH YASMINE AT AND HE GAVE PHONE NUMBER FOR HER NURSE, GRISELDA, AND ASKED THAT WE REACH OUT TO HER. HE DID STATE THAT PT COULD COME BACK WITH ORDERS FOR HOME HEALTH SERVICES. HIS PREFERENCE WOULD BE TO USE [facility]. CALLED NUMBER FOR NURSE GRISELDA AND SPOKE WITH CO-WORKER. SHE REPORTS THAT ONCE THEY KNOW THAT PT IS READY TO D/C, GRISELDA WILL NEED TO COME TO THE HOSPTIAL AND DO AN ASSESSMENT ON THE PT PRIOR TO THEM TAKING HER BACK. STAFF MEMBER WILL HAVE GRISELDA CALL BACK TO DISCUSS THE PLAN FOR WHEN THE PATIENT DISCHARGES. DID INFORM THEM THAT THERE IS NO SET D/C PLAN AT THIS TIME, JUST RECOMMENDATION FOR SNF. THEY ACKNOWLEDGED UNDERSTANDING. -MAKENZIE
--- NOTE | 2020-05-22 13:20 | NUR ---
Patient is sitting on a chair and alert. Patient is very sleepy but is able to tell me a little bit about her family and to agree to having a prayer said for her. I gladly provide prayer. Patient responds well and asks if I could come back another time for another visit. I will continue to remain available to patient and family.
--- NOTE | 2020-05-22 13:40 | NUR ---
ROOM AIR TRIAL PT MAINTAINED O2 LEVELS > 90% FOR ABOUT 10 MINUTES THEN WAS 88% ON RA EVEN WITH DEEP BREATHING EXERCISES. O2 REAPPLIED.
--- NOTE | 2020-05-22 17:35 | NUR ---
SHIFT SUMMARY PT HAS DONE WELL W/ THERAPY TODAY. ALERT & ORIENTED TODAY BUT IN AFTERNOON BECOMING FORGETFUL. PLEASANT & COOPERATIVE. DUARTE LOPEZ WNL. PAIN WELL CONTROLLED W/ TYLENOL.
--- NOTE | 2020-05-23 05:21 | NUR ---
SHIFT SUMMARY: PT POD#4 FOR A R HERMES HIP. PT A&O X4. CALM AND COOPERATIVE WITH CARE. FLAT AFFECT BUT ABLE TO MAKE NEEDS KNOWN AND USING CALL LIGHT APPRORPIATLY. INCONTINENT T/O NIGHT. PT USING CALL LIGHT WHEN NEEDING AN ATTENDS CHANGE. PT UP IN ROOM WITH SBA AND FWW/GB. TOLERATING ACTIVITY WELL. ADRIANNA PO AND COMPLIANT WITH FLUID RESTRICTION. PLAN FOR PT/OT. AWAITING SNF PLACEMENT.
[2020-05-23 09:17] LABS: Anion Gap 6 mmol/L (6-16); Blood Urea Nitrogen 9 mg/dL (8-24); Bun/Creatinine Ratio 21.5 (12.0-20.0); CO2, Blood 29 mmol/L (21-32); Calcium, Blood 8.7 mg/dL (8.5-10.1); Chloride, Blood 96 mmol/L (98-108); Creatinine, Blood 0.42 mg/dL (0.40-1.00); Glomerular Filtration Rate >60 (60-); Glucose, Blood 96 mg/dL (70-99); Potassium, Blood 4.2 mmol/L (3.5-5.5); Sodium, Blood 131 mmol/L (136-145)
--- NOTE | 2020-05-23 11:24 | NUR ---
Patient is lying in bed and resting but awakens slightly with the sound of her name. Patient is too sleepy to have a conversation but she welcomes having a prayer said for her. I gladly do so. Patient responds with a hearty "Amen" and verbalizing her appreciation but then is snoring before I get to the doorway of patient's rm. I will continue to remain available to patient and family.
--- NOTE | 2020-05-23 12:24 | NUR ---
DR STEINER RECENTLY TO SEE PT.
--- NOTE | 2020-05-23 12:44 | NUR ---
RT WITH PT, COMPLETING HOME O2 EVAL.
--- NOTE | 2020-05-23 13:12 | NUR ---
DISCUSSED PT'S STATUS WITH AIR HOLE DRILLER SLIME INCLUDING PT'S FAMILY CALLING DESK PER ACUTE CARE PHYSICAL THERAPIST AND RT HOME O2 EVAL BEING COMPLETED.
--- NOTE | 2020-05-23 14:21 | NUR ---
05/23/20- SPOKE WITH GRISELDA WITH [facility], SHE CAN'T ACCEPT THE PT BACK UNTIL SHE HAS COMPLETED HER ASSESSMENT. SHE STATED THAT SHE WILL COME IN AT 2PM TO DO HER ASSESSMENT. SHE WILL CALL TO NOTIFY STAFF ONCE SHE IS DONE. CALLED AND SPOKE WITH BROTHER LUCERO, UPDATED HIM ON STATUS AND PLAN MOVING FORWARD TO GET PT DISCHARGED. ORDERED FWW THROUGH [employer]. CALLED ON THE STATUS OF WALKER, THEY WILL CALL ONCE THEY RECEIVE AND COMPLETE THE ORDER. ASKED THAT IT BE DELIVERED TO HER HOSPITAL ROOM. DR. STEINER WILL PUT IN ORDERS FOR DISCHARGE IN CASE SHE IS ABLE TO GO HOME TODAY AFTER HER ASSESSMENT. HE WOULD LIKE HER TO HAVE A FOLLOW UP WITH IN ABOUT A WEEK. -MAKENZIE
--- NOTE | 2020-05-23 14:38 | NUR ---
STAFF FROM [facility] HERE TO SEE PT. STAFF REPORTED UNABLE TO COMPLETE LOVENOX SHOTS, DISCUSSED WITH DR STEINER WHO REPORTED TO DISCUSS WITH DR CASILLAS. DR REPORTED TO CHANGE TO [facility]. DISCUSSED WITH [facility].
--- NOTE | 2020-05-23 14:49 | NUR ---
[facility] REPORTED UNABLE TO HAVE PT GO TO [facility] TODAY, THAT THEY WOULD BE ABLE TO BE DISCHARGED TOMMORROW AM RELATED TO PT'S MEDICATION CHANGES. DISCUSSED WITH DR STEINER, REPORTS OK TO HOLD D/C UNTIL TOMMORROW. DISCUSSED WITH SINGER BACK TENDER.
--- NOTE | 2020-05-23 15:58 | NUR ---
SHIFT SUMMARY PT EATING AND DRINKING, VOIDING, HAD BM TODAY. PT PAIN BEEN CONTROLLED WITH PO MEDICATION. [facility] STAFF HERE TO SEE PT, REPORTED ABLE FOR PT TO GO TO [facility] (DR HOUSE). PT BEEN ASSISTED WITH ADL'S PRN. PT BEEN UP IN CHAIR MOST OF DAY TODAY. PT WORKED WITH THERAPY. PT HAD HOME O2 EVAL. PT USING [facility] LIGHT APPR.
--- NOTE | 2020-05-24 04:17 | NUR ---
SHIFT SUMMARY ADMITTED FOR HYPONATREMIA. POD4. FULL CODE. POSTERIOR HIP PRECAUTIONS IN PLACE. PLAN IS FOR PT TO DC BACK TO [facility] TODAY. SHE IS ON A FLUID RESTRICTION. HOME O2 EVAL COMPLETED. PICC LINE IN RUE. SHE DID REQUIRE PAIN MEDICATION FOR HEADACHES THIS SHIFT, SEE EMAR.
--- NOTE | 2020-05-24 08:36 | NUR ---
REQUESTED PERMISSION TO TAKE PART IN PT CARE. PT AGREED AND ALLOWING.
--- NOTE | 2020-05-24 09:20 | NUR ---
SUMMARY: Admit: 05/18/20 05/24/20 Discharge to [facility], s/w Saima, nurse, call her for kelley call. cell [phone]. [facility] to pick Pina up today at 9:45 am Nurse stanley notified. Discharge orders to be faxed to [facility] by Stanley, fax tramadol script to [facility] and call report to Saima at [facility] all to be completed by Stanley, floor nurse. Front wheel walker in the room, [facility]. Notifed brother Adan, Pina would be transported back at 9:45 by TT. CP
[2020-05-24] MEDS ORDERED: ACET325 PO (09:23)
[2020-05-24] MEDS ORDERED: DOCU100 PO (09:23)
[2020-05-24] MEDS ORDERED: SENN187 PO (09:24)
[2020-05-24] MEDS ORDERED: ONDA4 PO (09:24)
[2020-05-24] MEDS ORDERED: Aspir 8181 MG PO (09:25)
[2020-05-24] MEDS ORDERED: TRAM50 PO (09:25)
[2020-05-24] MEDS ORDERED: OMEP20ER PO (09:26)
--- NOTE | 2020-05-24 10:44 | NUR ---
DC'D HOME TO [facility] THIS AM, REPORT GIVEN TO KIN VILLALOBOS.
== END 2020-05-24 10:00 | disposition home or self-care (01) | DRG 521 ==
LOC: ER 09:04 → ERHOLD 12:55 → ICUW 12:55 → ERHOLD 16:00 → ICUW 05-19 13:02 → SURS 05-20 15:54
PROVIDERS: Emergency Medicine; Internal Medicine; Orthopaedic Surgery; ADMIT Internal Medicine
PROC: 0SRR0JA Replacement of Right Hip Joint, Femoral Surface with Synthetic Substitute, Uncemented, Open Approach (ICD-10-PCS; principal; 2020-05-19 12:00)
DX: S72.001A Fracture of unspecified part of neck of right femur, initial encounter for closed fracture (principal); G93.41 Metabolic encephalopathy; J96.00 Acute respiratory failure, unspecified whether with hypoxia or hypercapnia; E87.1 Hypo-osmolality and hyponatremia; F20.0 Paranoid schizophrenia; Z20.822 Contact with and (suspected) exposure to COVID-19; W19.XXXA Unspecified fall, initial encounter; F17.210 Nicotine dependence, cigarettes, uncomplicated; F31.9 Bipolar disorder, unspecified; F03.90 Unspecified dementia, unspecified severity, without behavioral disturbance, psychotic disturbance, mood disturbance, and anxiety
CPT/HCPCS: 0241U; 36415; 36569; 51701; 51702; 71045; 71260; 72170; 73502; 74176; 80048; 80053; 80164; 81001; 83690; 83735; 83930; 83935; 84100; 84295; 84300; 84443; 84550; 85025; 88305; 88311; 93005; 93010; 94660; 94667; 94761; 96374-59; 96375-59; 97110; 97116; 97161; 97166; 97530; 97535; 99285-25; A9270; C1751; C1776; J0171; J0330; J0690; J0735; J1170; J1650; J1885; J2270; J2310; J2370; J2405; J2704; J2795; J3010; J3370; J7030; J7060; J7120; Q9967

== ENCOUNTER → 2020-05-31 | Outpatient (CLI) | payer OTHER ==
[~2020-05-31] MED LIST changes: +ACET325 PO; +Aspir 8181 MG PO; +BISA10S; +CENTRUM SILVER1 EAC2 PO; +DOCU100 PO; +LORA10ER PO; +OMEP20ER PO; +ONDA4 PO; +QUETIAPINE FUMA50 M2 PO; +RISP3 PO; +ROBITUSSIN100 MG/5 M PO; +SENN187 PO; +TRAM50 PO; +TUMS500 MG PO
[2020-05-31 13:44] LABS: BASOPHILS ABSOLUTE AUTO 0.08 K/mm3 (0.00-0.23); BASOPHILS PERCENT AUTO 1 % (0-2); EOSINOPHILS ABSOLUTE AUTO 0.12 K/mm3 (0.00-0.68); EOSINOPHILS PERCENT AUTO 1 % (0-6); Hematocrit 40.4 % (33.0-51.0); Hemoglobin 12.6 g/dL (11.5-16.0); IMMATURE GRAN ABSOLUTE AUTO 0.07 K/mm3 (0.00-0.10); IMMATURE GRAN PERCENT AUTO 1 % (0-1); LYMPHOCYTES ABSOLUTE AUTO 2.37 K/mm3 (0.84-5.20); LYMPHOCYTES PERCENT AUTO 28 % (21-46); MONOCYTES ABSOLUTE AUTO 0.41 K/mm3 (0.16-1.47); MONOCYTES PERCENT AUTO 5 % (4-13); Mean Corpuscular HGB 32.7 pg (26.0-34.0); Mean Corpuscular HGB Conc 31.2 g/dL (31.5-36.5); Mean Corpuscular Volume 105 fL (80-100); Mean Platelet Volume 9.6 fL (9.1-12.4); NEUTROPHILS ABSOLUTE AUTO 5.41 K/mm3 (1.96-9.15); NEUTROPHILS PERCENT AUTO 64 % (41-73); Platelet Count 540 K/mm3 (150-400); RDW Standard Deviation 49.8 fL (35.1-46.3); Red Blood Cell Count 3.85 M/mm3 (3.80-5.20); White Blood Cell Count 8.46 K/mm3 (4.00-11.30)
[2020-05-31 14:29] LABS: Anion Gap 6 mmol/L (6-16); Blood Urea Nitrogen 8 mg/dL (8-24); Bun/Creatinine Ratio 14.8 (12.0-20.0); CO2, Blood 27 mmol/L (21-32); Calcium, Blood 9.5 mg/dL (8.5-10.1); Chloride, Blood 103 mmol/L (98-108); Creatinine, Blood 0.54 mg/dL (0.40-1.00); Glomerular Filtration Rate >60 (60-); Glucose, Blood 126 mg/dL (70-99); Potassium, Blood 4.7 mmol/L (3.5-5.5); Sodium, Blood 136 mmol/L (136-145)
== END | disposition home or self-care (01) ==
LOC: LAB 12:18 → LAB SHORT 12:18
PROVIDERS: Family Medicine
DX: E87.1 Hypo-osmolality and hyponatremia (principal); Z96.641 Presence of right artificial hip joint
CPT/HCPCS: 80048; 85025

== ENCOUNTER → 2020-07-10 | Outpatient (CLI) | payer OTHER ==
[2020-07-10 13:54] LABS: Valproic Acid 54.3 ug/mL (50.0-100.0)
== END | disposition home or self-care (01) ==
LOC: LAB SHORT 10:52 → LAB 10:52
PROVIDERS: Psychiatry & Neurology Psychiatry
DX: Z51.81 Encounter for therapeutic drug level monitoring (principal); Z79.899 Other long term (current) drug therapy
CPT/HCPCS: 80164

== ENCOUNTER → 2020-12-29 | Outpatient (CLI) | payer OTHER ==
[2020-12-29 14:21] LABS: Valproic Acid 59.1 ug/mL (50.0-100.0)
== END | disposition home or self-care (01) ==
LOC: LAB 07:30 → LAB SHORT 07:30
PROVIDERS: Psychiatry & Neurology Psychiatry
DX: Z51.81 Encounter for therapeutic drug level monitoring (principal); Z79.899 Other long term (current) drug therapy
CPT/HCPCS: 80164

== ENCOUNTER → 2021-05-30 | Outpatient (CLI) | payer OTHER ==
[2021-05-30 10:30] LABS: Valproic Acid 67.9 ug/mL (50.0-100.0)
== END | disposition home or self-care (01) ==
LOC: LAB SHORT 08:40
PROVIDERS: Psychiatry & Neurology Psychiatry
DX: Z51.81 Encounter for therapeutic drug level monitoring (principal); Z79.899 Other long term (current) drug therapy
CPT/HCPCS: 80164

== ENCOUNTER → 2021-10-03 | Outpatient (CLI) | payer OTHER ==
[2021-10-03 12:55] LABS: Valproic Acid 49.5 ug/mL (50.0-100.0)
== END | disposition home or self-care (01) ==
LOC: LAB SHORT 10:41 → LAB 10:41
PROVIDERS: Psychiatry & Neurology Psychiatry
DX: Z51.81 Encounter for therapeutic drug level monitoring (principal); Z79.899 Other long term (current) drug therapy
CPT/HCPCS: 80164

== ENCOUNTER 2021-11-04 13:16 | Inpatient (IN) | payer OTHER ==
[~2021-11-04] VITALS: Ht 167.6 cm; Wt 77.1 kg
[2021-11-04 16:34] LABS: BASOPHILS ABSOLUTE AUTO 0.04 K/mm3 (0.00-0.23); BASOPHILS PERCENT AUTO 0 % (0-2); EOSINOPHILS PERCENT AUTO 0 % (0-6); Hematocrit 44.6 % (33.0-51.0); Hemoglobin 14.8 g/dL (11.5-16.0); IMMATURE GRAN ABSOLUTE AUTO 0.04 K/mm3 (0.00-0.10); IMMATURE GRAN PERCENT AUTO 0 % (0-1); LYMPHOCYTES ABSOLUTE AUTO 1.42 K/mm3 (0.84-5.20); LYMPHOCYTES PERCENT AUTO 11 % (21-46); MONOCYTES ABSOLUTE AUTO 0.63 K/mm3 (0.16-1.47); MONOCYTES PERCENT AUTO 5 % (4-13); Mean Corpuscular HGB 32.3 pg (26.0-34.0); Mean Corpuscular HGB Conc 33.2 g/dL (31.5-36.5); Mean Corpuscular Volume 97 fL (80-100); Mean Platelet Volume 10.7 fL (9.1-12.4); NEUTROPHILS ABSOLUTE AUTO 10.43 K/mm3 (1.96-9.15); NEUTROPHILS PERCENT AUTO 83 % (41-73); Platelet Count 225 K/mm3 (150-400); RDW Coefficient Variation 12.4 % (11.7-14.2); RDW Standard Deviation 44.3 fL (35.1-46.3); Red Blood Cell Count 4.58 M/mm3 (3.80-5.20); White Blood Cell Count 12.56 K/mm3 (4.00-11.30)
[2021-11-04 16:52] LABS: Albumin, Blood 3.6 g/dL (3.4-5.0); Albumin/Globulin Ratio 1.1 (0.8-1.8); Bilirubin, Total 0.2 mg/dL (0.1-1.0); Bun/Creatinine Ratio 21.3 (12.0-20.0); Calcium, Blood 9.3 mg/dL (8.5-10.1); Creatinine, Blood 0.52 mg/dL (0.40-1.00); Globulin, Blood 3.4 g/dL (2.2-4.0); Potassium, Blood 4.4 mmol/L (3.5-5.5)
[2021-11-04 17:00] LABS: Source, Urine Foley catheter
[2021-11-04 17:11] LABS: Appearance, Urine Hazy (Clear); Bilirubin, Urine Neg (Neg); Blood, Urine 3+ (Neg); Color, Urine Yellow (P-Yellow); Glucose Qualitative, Urine Neg (Neg); Ketones, Urine Neg (Neg); Leukocyte Esterase, Urine 1+ (Neg); Nitrite, Urine Pos (Neg); Protein, Urine Neg (Neg); Urobilinogen, Urine NORM (Normal)
[2021-11-04 17:39] LABS: Mucus Mod (0-Heavy)
[2021-11-04 17:42] LABS: Bacteria Many /hpf; Red Blood Cells, Urine 0-2 /hpf (0-2); Squamous Epithelial Cells Rare /hpf (Few)
[2021-11-04 17:47] LABS: Influenza A, PCR NEGATIVE (NEGATIVE); Influenza B, PCR NEGATIVE (NEGATIVE); Resp Syncytial Virus, PCR NEGATIVE (NEGATIVE); SARS-Cov-2 (COVID-19) PCR, MMC NEGATIVE (NEGATIVE)
[2021-11-04] MEDS ORDERED: DIVALPROEX SOD500 M2 PO (19:18)
[2021-11-04] MEDS ORDERED: LOW DOSE ASPIRI81 M1 PO (19:18)
[2021-11-04] MEDS ORDERED: COLACE100 MG PO (19:19)
[2021-11-05 05:12] LABS: BASOPHILS ABSOLUTE AUTO 0.03 K/mm3 (0.00-0.23); BASOPHILS PERCENT AUTO 0 % (0-2); EOSINOPHILS ABSOLUTE AUTO 0.01 K/mm3 (0.00-0.68); EOSINOPHILS PERCENT AUTO 0 % (0-6); Hematocrit 41.8 % (33.0-51.0); Hemoglobin 13.8 g/dL (11.5-16.0); IMMATURE GRAN ABSOLUTE AUTO 0.03 K/mm3 (0.00-0.10); IMMATURE GRAN PERCENT AUTO 0 % (0-1); LYMPHOCYTES PERCENT AUTO 12 % (21-46); MONOCYTES ABSOLUTE AUTO 0.83 K/mm3 (0.16-1.47); MONOCYTES PERCENT AUTO 9 % (4-13); Mean Corpuscular HGB 32.2 pg (26.0-34.0); Mean Corpuscular Volume 97 fL (80-100); Mean Platelet Volume 10.8 fL (9.1-12.4); NEUTROPHILS ABSOLUTE AUTO 7.69 K/mm3 (1.96-9.15); NEUTROPHILS PERCENT AUTO 79 % (41-73); Platelet Count 228 K/mm3 (150-400); RDW Coefficient Variation 12.4 % (11.7-14.2); RDW Standard Deviation 44.4 fL (35.1-46.3); Red Blood Cell Count 4.29 M/mm3 (3.80-5.20); White Blood Cell Count 9.79 K/mm3 (4.00-11.30)
[2021-11-05 05:35] LABS: Albumin, Blood 3.2 g/dL (3.4-5.0); Bilirubin, Total 0.4 mg/dL (0.1-1.0); Bun/Creatinine Ratio 22.2 (12.0-20.0); Creatinine, Blood 0.41 mg/dL (0.40-1.00); Globulin, Blood 3.2 g/dL (2.2-4.0); Potassium, Blood 3.8 mmol/L (3.5-5.5); Total Protein, Blood 6.4 g/dL (6.4-8.2)
--- NOTE | 2021-11-05 07:39 | NUR ---
SUMMARY ADMIT FOR FX THIS SHIFT.NPO POOSIBLE OR TODAY.DILAUDID EFFECTIVE FOR PAIN CONTROL.JER PATENT.
--- NOTE | 2021-11-05 08:49 | NUR ---
CONSENT RECEIVED CALL FROM [facility] NURSE WHO GAVE CONTACT INFORMATION FOR THE PERSON DESIGNATED TO BE ABLE TO GIVE CONSENT FOR THIS PATIENT. JENNA "NAYELI NIELSEN - [phone] (CELL PHONE). PER NURSE REPORT THIS PERSON IS AWARE THAT THE PATIENT IS HERE AND IS WILLING TO GIVE CONSENT FOR SURGERY.
--- NOTE | 2021-11-05 13:13 | NUR ---
Upon receiving a spiritual care referral, I visit pt. Pt tells me about the evvents that led to her fracture and the plan for surgery today. Pt tells me that she is nervous about it and would like me to pray for her, which I gladly provide. I empathically listen, normalize pt's experience and provide anxiety containment and a calming presence. Pt responds well and shows signs of reduced stress. I will continue to remain available to pt and family.
--- NOTE | 2021-11-05 14:42 | NUR ---
History, Chart, Medications and Allergies reviewed before start of procedure.Pre-Op teaching done. Pt verbalizes understanding. Patient confirms NPO status and agrees with scheduled surgery. WATCH REMOVED FROM PT'S LEFT WRIST AND PUT IN HER PERSONAL BELONGINGS BAG AND LEFT IN HER ROOM. PATIENT AWARE
--- NOTE | 2021-11-05 17:06 | NUR ---
11/05/21 170 Susy Shine PATIENT HAD RANDLE IN PLACE PRIOR TO ENTERING OR. DRAINING YELLOW URINE.
--- NOTE | 2021-11-06 04:55 | NUR ---
SHIFT SUMMARY POD1 L HERMES HIP, ANTERIOR APPROACH WITH L HIP PRINEO DRESING ON SURGICAL SITE, REMAINED CDI. SALINE LOCKED. AOX3 FORGETFUL AT TIMES. TOLERATING PO INTAKE. DENIES NAUSEA AND VOMITING. WB ADRIANNA ON LLE. RANDLE PATENT, OFF FLOOR, GRAVITY WITH ADEQUATE URINE OUTPUT. SCD'S ON. ABLE TO MOVE ALL EXT, LIMITED ON LLE. DENIES NUMBNESS/TINGLING SENSATION. CALL LIGHT WITHIN REACH. WILL PROVIDE REPORT TO ONCOMING NURSE.
[2021-11-06 05:05] LABS: BASOPHILS ABSOLUTE AUTO 0.01 K/mm3 (0.00-0.23); BASOPHILS PERCENT AUTO 0 % (0-2); EOSINOPHILS PERCENT AUTO 0 % (0-6); Hematocrit 38.5 % (33.0-51.0); Hemoglobin 12.6 g/dL (11.5-16.0); IMMATURE GRAN ABSOLUTE AUTO 0.06 K/mm3 (0.00-0.10); IMMATURE GRAN PERCENT AUTO 1 % (0-1); LYMPHOCYTES ABSOLUTE AUTO 1.15 K/mm3 (0.84-5.20); LYMPHOCYTES PERCENT AUTO 10 % (21-46); MONOCYTES PERCENT AUTO 8 % (4-13); Mean Corpuscular HGB 32.2 pg (26.0-34.0); Mean Corpuscular HGB Conc 32.7 g/dL (31.5-36.5); Mean Corpuscular Volume 99 fL (80-100); Mean Platelet Volume 10.9 fL (9.1-12.4); NEUTROPHILS ABSOLUTE AUTO 9.64 K/mm3 (1.96-9.15); NEUTROPHILS PERCENT AUTO 81 % (41-73); Platelet Count 200 K/mm3 (150-400); RDW Coefficient Variation 12.2 % (11.7-14.2); Red Blood Cell Count 3.91 M/mm3 (3.80-5.20); White Blood Cell Count 11.86 K/mm3 (4.00-11.30)
[2021-11-06 05:27] LABS: Albumin, Blood 2.8 g/dL (3.4-5.0); Albumin/Globulin Ratio 0.9 (0.8-1.8); Bilirubin, Total 0.3 mg/dL (0.1-1.0); Bun/Creatinine Ratio 30.7 (12.0-20.0); Calcium, Blood 8.7 mg/dL (8.5-10.1); Creatinine, Blood 0.42 mg/dL (0.40-1.00); Globulin, Blood 3.2 g/dL (2.2-4.0); Potassium, Blood 4.3 mmol/L (3.5-5.5)
--- NOTE | 2021-11-06 12:18 | NUR ---
DISCHARGE SUMMARY PATIENT UPDATED ON PLAN TO DISCHARGE, CALLED [facility] AND GAVE REPORT ON PATIENT CONDITION AND LET THEM KNOW TRANSPORT WAS IN THE PROCESS OF PICKING HER UP, RECEIVING FACILITY HAD TO QUESTIONS DURING REPORT. PT ESCORTED OUT [facility]IA [facility] FOR TRANSPORT TO [facility].
== END 2021-11-06 12:19 | DRG 521 ==
LOC: ER 13:16 → SURS 18:30
PROVIDERS: Family Medicine; Orthopaedic Surgery; Student in an Organized Health Care Education/Training Program; ADMIT Internal Medicine
PROC: 0SRS0JA Replacement of Left Hip Joint, Femoral Surface with Synthetic Substitute, Uncemented, Open Approach (ICD-10-PCS; principal; 2021-11-05 15:00)
DX: S72.002A Fracture of unspecified part of neck of left femur, initial encounter for closed fracture (principal); G93.41 Metabolic encephalopathy; F20.0 Paranoid schizophrenia; N39.0 Urinary tract infection, site not specified; E87.1 Hypo-osmolality and hyponatremia; Z20.822 Contact with and (suspected) exposure to COVID-19; J44.9 Chronic obstructive pulmonary disease, unspecified; F17.210 Nicotine dependence, cigarettes, uncomplicated; F03.90 Unspecified dementia, unspecified severity, without behavioral disturbance, psychotic disturbance, mood disturbance, and anxiety; M19.90 Unspecified osteoarthritis, unspecified site; G43.909 Migraine, unspecified, not intractable, without status migrainosus; F31.9 Bipolar disorder, unspecified; B96.20 Unspecified Escherichia coli [E. coli] as the cause of diseases classified elsewhere; Z96.641 Presence of right artificial hip joint; Z90.89 Acquired absence of other organs; Z98.890 Other specified postprocedural states; Z88.2 Allergy status to sulfonamides; Z88.8 Allergy status to other drugs, medicaments and biological substances; Z79.01 Long term (current) use of anticoagulants; Z79.82 Long term (current) use of aspirin; Z79.899 Other long term (current) drug therapy; W01.0XXA Fall on same level from slipping, tripping and stumbling without subsequent striking against object, initial encounter; Y92.129 Unspecified place in nursing home as the place of occurrence of the external cause
CPT/HCPCS: 0241U; 36415; 51702; 72170; 73502; 80053; 81001; 85025; 87077; 87086; 87186; 96374; 97116; 97162; 97166; 97530; 97535; 99285-25; A9270; C1713; C1776; J0171; J0690; J0735; J1100; J1170; J1650; J1885; J2250; J2370; J2405; J2704; J2795; J3010; J7030; J7120

== ENCOUNTER → 2022-05-24 | Outpatient (CLI) | payer OTHER ==
[~2022-05-24] MED LIST changes: +COLACE100 MG PO; +DIVALPROEX SOD500 M2 PO; +LOW DOSE ASPIRI81 M1 PO
[2022-05-27 12:59] LABS: Source, Urine Clean Catch
[2022-05-27 13:42] LABS: Appearance, Urine Clear (Clear); Bilirubin, Urine Neg (Neg); Blood, Urine Neg (Neg); Color, Urine Yellow (P-Yellow); Glucose Qualitative, Urine Neg (Neg); Ketones, Urine Neg (Neg); Leukocyte Esterase, Urine Neg (Neg); Nitrite, Urine Neg (Neg); Protein, Urine Neg (Neg); Specific Gravity, Urine 1.015 (1.003-1.022); Urobilinogen, Urine NORM (Normal)
== END | disposition home or self-care (01) ==
LOC: LAB SHORT 17:30
PROVIDERS: Physician Assistant
DX: N39.0 Urinary tract infection, site not specified (principal)
CPT/HCPCS: 81003

== ENCOUNTER → 2022-05-30 | Outpatient (CLI) | payer OTHER | END | disposition home or self-care (01) | LOC: LAB SHORT 08:44 | PROVIDERS: Psychiatry & Neurology Psychiatry | DX: Z51.81 Encounter for therapeutic drug level monitoring (principal); Z79.899 Other long term (current) drug therapy | CPT/HCPCS: 80164 ==

== ENCOUNTER → 2022-06-10 | Outpatient (CLI) | payer OTHER | LOC: LAB 14:40 → LAB SHORT 14:40 | DX: L02.416 Cutaneous abscess of left lower limb (principal) | CPT/HCPCS: 87070; 87075; 87077; 87147; 87186; 87205 ==

== ENCOUNTER → 2022-08-21 | Outpatient (CLI) | payer OTHER ==
[2022-08-21 13:40] LABS: BASOPHILS ABSOLUTE AUTO 0.05 K/mm3 (0.00-0.23); BASOPHILS PERCENT AUTO 1 % (0-2); EOSINOPHILS ABSOLUTE AUTO 0.06 K/mm3 (0.00-0.68); EOSINOPHILS PERCENT AUTO 1 % (0-6); Hematocrit 41.7 % (33.0-51.0); Hemoglobin 13.8 g/dL (11.5-16.0); IMMATURE GRAN ABSOLUTE AUTO 0.02 K/mm3 (0.00-0.10); IMMATURE GRAN PERCENT AUTO 0 % (0-1); LYMPHOCYTES ABSOLUTE AUTO 2.07 K/mm3 (0.84-5.20); LYMPHOCYTES PERCENT AUTO 28 % (21-46); MONOCYTES ABSOLUTE AUTO 0.61 K/mm3 (0.16-1.47); MONOCYTES PERCENT AUTO 8 % (4-13); Mean Corpuscular HGB 31.1 pg (26.0-34.0); Mean Corpuscular HGB Conc 33.1 g/dL (31.5-36.5); Mean Corpuscular Volume 94 fL (80-100); Mean Platelet Volume 10.3 fL (9.1-12.4); NEUTROPHILS ABSOLUTE AUTO 4.49 K/mm3 (1.96-9.15); NEUTROPHILS PERCENT AUTO 61 % (41-73); Platelet Count 335 K/mm3 (150-400); RDW Coefficient Variation 12.6 % (11.7-14.2); RDW Standard Deviation 43.8 fL (35.1-46.3); Red Blood Cell Count 4.44 M/mm3 (3.80-5.20)
[2022-08-21 15:01] LABS: Alanine Aminotransfer (ALT/SGP 23 U/L (12-78); Albumin, Blood 3.1 g/dL (3.4-5.0); Albumin/Globulin Ratio 0.8 (0.8-1.8); Alk Phos 83 U/L (50-136); Anion Gap 2 mmol/L (6-16); Aspartate Aminotrans (AST/SGOT 13 U/L (12-37); Bilirubin, Total 0.3 mg/dL (0.1-1.0); Blood Urea Nitrogen 7 mg/dL (8-24); Bun/Creatinine Ratio 14.9 (12.0-20.0); CHOL/HDL RATIO 3.1; CO2, Blood 27 mmol/L (21-32); Chloride, Blood 102 mmol/L (98-108); Cholesterol 142 mg/dL (50-200); Creatinine, Blood 0.47 mg/dL (0.40-1.00); Globulin, Blood 3.7 g/dL (2.2-4.0); Glomerular Filtration Rate 99 (60-); Glucose, Blood 93 mg/dL (70-99); HDL Cholesterol 46 mg/dL (>39); LDL/HDL RATIO 1.7; Low Density Lipoprotein Chol 79 mg/dL (0-110); Potassium, Blood 4.5 mmol/L (3.5-5.5); Sodium, Blood 131 mmol/L (136-145); Total Protein, Blood 6.8 g/dL (6.4-8.2); Triglycerides 84 mg/dL (30-160); Very Low Density Lipoprot Chol 16 mg/dL (6-32)
== END | disposition home or self-care (01) ==
LOC: LAB SHORT 08:14 → LAB 08:14
PROVIDERS: Physician Assistant
DX: I25.10 Atherosclerotic heart disease of native coronary artery without angina pectoris (principal); I70.0 Atherosclerosis of aorta; Z79.899 Other long term (current) drug therapy
CPT/HCPCS: 80053; 80061; 85025

== ENCOUNTER → 2022-09-25 | Outpatient (CLI) | payer OTHER ==
[2022-09-25 12:15] LABS: Valproic Acid 57.8 ug/mL (50.0-100.0)
== END | disposition home or self-care (01) ==
LOC: LAB SHORT 07:35 → LAB 07:35
PROVIDERS: Psychiatry & Neurology Psychiatry
DX: Z51.81 Encounter for therapeutic drug level monitoring (principal); Z79.899 Other long term (current) drug therapy
CPT/HCPCS: 80164

== ENCOUNTER → 2023-04-02 | Outpatient (CLI) | payer OTHER ==
[2023-04-02 17:52] LABS: Valproic Acid 51.5 ug/mL (50.0-100.0)
== END | disposition home or self-care (01) ==
LOC: LAB SHORT 15:40 → LAB 15:40
PROVIDERS: Psychiatry & Neurology Psychiatry
DX: Z51.81 Encounter for therapeutic drug level monitoring (principal); F25.0 Schizoaffective disorder, bipolar type; Z79.899 Other long term (current) drug therapy
CPT/HCPCS: 80164

== ENCOUNTER → 2023-06-18 | Outpatient (CLI) | payer OTHER ==
[2023-06-18 19:36] LABS: BASOPHILS ABSOLUTE AUTO 0.04 K/mm3 (0.00-0.23); BASOPHILS PERCENT AUTO 1 % (0-2); EOSINOPHILS ABSOLUTE AUTO 0.06 K/mm3 (0.00-0.68); EOSINOPHILS PERCENT AUTO 1 % (0-6); Hematocrit 43.6 % (33.0-51.0); Hemoglobin 14.4 g/dL (11.5-16.0); IMMATURE GRAN ABSOLUTE AUTO 0.01 K/mm3 (0.00-0.10); IMMATURE GRAN PERCENT AUTO 0 % (0-1); LYMPHOCYTES PERCENT AUTO 34 % (21-46); MONOCYTES ABSOLUTE AUTO 0.44 K/mm3 (0.16-1.47); MONOCYTES PERCENT AUTO 8 % (4-13); Mean Corpuscular HGB 29.8 pg (26.0-34.0); Mean Corpuscular Volume 90 fL (80-100); Mean Platelet Volume 11.2 fL (9.1-12.4); NEUTROPHILS ABSOLUTE AUTO 2.88 K/mm3 (1.96-9.15); NEUTROPHILS PERCENT AUTO 55 % (41-73); Platelet Count 206 K/mm3 (150-400); RDW Coefficient Variation 14.4 % (11.7-14.2); RDW Standard Deviation 47.6 fL (35.1-46.3); Red Blood Cell Count 4.84 M/mm3 (3.80-5.20); White Blood Cell Count 5.23 K/mm3 (4.00-11.30)
[2023-06-18 19:39] LABS: CHOL/HDL RATIO 2.4; Cholesterol 158 mg/dL (50-200); HDL Cholesterol 66 mg/dL (>39); LDL/HDL RATIO 1.3; Low Density Lipoprotein Chol 83 mg/dL (0-110); Triglycerides 44 mg/dL (30-160); Very Low Density Lipoprot Chol 8 mg/dL (6-32)
== END | disposition home or self-care (01) ==
LOC: LAB 17:42 → LAB SHORT 17:42
PROVIDERS: Family Medicine
DX: I25.10 Atherosclerotic heart disease of native coronary artery without angina pectoris (principal); I70.0 Atherosclerosis of aorta; Z79.899 Other long term (current) drug therapy
CPT/HCPCS: 80061; 83036; 85025

== ENCOUNTER → 2023-11-19 | Outpatient (CLI) | payer OTHER ==
[2023-11-19 12:32] LABS: Valproic Acid 33.6 ug/mL (50.0-100.0)
== END ==
LOC: LAB 09:44 → LAB SHORT 09:44
PROVIDERS: Psychiatry & Neurology Psychiatry
DX: Z51.81 Encounter for therapeutic drug level monitoring (principal)
CPT/HCPCS: 80164